=== PATIENT | female | born 1955 | race Caucasian/White ===

== ENCOUNTER 2024-07-30 09:07 | Inpatient (IN) | payer MEDICARE, OTHER, SELFPAY ==
[2024-07-09 13:49] LABS: Hemoglobin 12.4 g/dL (12.0-16.0); Mean Corp Hgb Conc. 34.4 g/dL (33.0-37.0); Mean Corpuscular Hgb 31.7 pg (27.0-31.0); Mean Corpuscular Volume 92.1 fL (81.0-99.0); Mean Platelet Volume 10.2 fL (7.4-10.4); Platelet Count 311 10^3/uL (130-400); Red Blood Cell Count 3.91 10^6/uL (4.20-5.40); Red Cell Dist. Width 13.2 % (11.5-14.5); White Blood Cell Count 6.7 10^3/uL (4.8-10.8)
[2024-07-09 14:08] LABS: Glycohemoglobin (HgbA1c) 5.5 % (4.0-5.6)
[2024-07-09 14:10] LABS: ALT (SGPT) 15 U/L (0-35); AST (SGOT) 26 U/L (14-36); Albumin 4.5 g/dl (3.5-5.0); Alkaline Phosphatase 98 U/L (38-126); Blood Urea Nitrogen 15 mg/dl (7-17); Calcium 9.5 mg/dl (8.4-10.2); Carbon Dioxide 26 mmol/L (22-30); Chloride 101 mmol/L (98-107); Glucose 95 mg/dl (70-99); Potassium 4.2 mmol/L (3.5-5.1); Sodium 137 mmol/L (135-145); Total Bilirubin 0.5 mg/dl (0.2-1.3); Total Protein 6.8 g/dl (6.3-8.2); eGFR > 60.00
[2024-07-09 14:14] VITALS: BMI 25.7
[2024-07-09 14:22] VITALS: BMI 25.7
--- NOTE | 2024-07-16 09:32 | VNURNOTE ---
Chart reviewed. Per Minna Perdomo's note, pt to be admitted morning of surgery. [facility] remains available pending DC dispo.
[2024-07-30] VITALS (17 sets, daily range): BP systolic 85–143; BP diastolic 47–110; PULSE 68; O2SAT 94
[2024-07-30] MEDS: TYLENOL 650 MG PO ×3 (09:27→19:50)
[2024-07-30] MEDS: CELEBREX 200 MG PO (09:27)
[2024-07-30] MEDS: NORMOSOL-R/PLASMALYTE-A 1000 IV ×2 (09:45→16:06)
--- NOTE | 2024-07-30 13:09 | W.DS.TRANS ---
DC Summary - Information Coder
-
Discharge Instructions:
Sleep Apnea Risk Low
Discharge Diagnosis/Procedures R TKA 07/30/24 *EARLY D/C*
Diet No restrictions
Activity With Walker
Additional Activity Adequate hydration, minimize Oxy and wear TEDs
stockings to prevent low blood pressure/
dizziness
Driving Restrictions No driving
Bathing Restrictions OK to Shower
Other Services PT
Instructions:
Stand-Alone Forms: Total Hip/Knee Replacement D/C
Changes to Home Medications: Yes
Discharge Medications:
DC Medications w/original date entered in [employer]
alprazolam 0.5 mg tablet 0.5 mg PO HS PRN sleep 07/06/24
ascorbic acid (vitamin C) 500 mg tablet (Vitamin C) 500 mg PO DAILY 07/06/24
azelastine 137 mcg (0.1 %) nasal spray 2 spray intranasal BID 07/06/24
cyclosporine 0.05 % eye drops 1 drp ophthalmic (eye) Q12H 07/06/24
diltiazem HCl 120 mg capsule,extended release 12 hr 120 mg PO DAILY 07/06/24
escitalopram oxalate 20 mg tablet 20 mg PO DAILY 07/06/24
estradiol 10 mcg vaginal tablet (Yuvafem) 10 mcg vaginal .TWICE A WEEK 07/06/24
flecainide 50 mg tablet 50 mg PO DAILY 07/06/24
fluticasone furoate 100 mcg/actuation blister powder for inhalation (Arnuity Ellipta) 1 inh inhalation DAILY PRN sob/wheeze 07/06/24
levothyroxine 75 mcg tablet 75 mcg PO DAILY 07/06/24
methylcellulose (laxative) 500 mg tablet (Citrucel) 1,000 mg PO BID 07/06/24
wbdvcnsr-jjoc-fevd 8 mg-folic 400 mcg-K 50 mcg-lutein 300 mcg tablet (Centrum Silver Women) 1 tab PO DAILY 07/06/24
polyethylene glycol 3350 17 gram oral powder packet (Miralax) 8.5 g PO DAILY 07/06/24
celecoxib 200 mg capsule 200 mg PO DAILY Anti-inflammatory #14 caps 07/09/24
dexamethasone 4 mg tablet 4 mg PO BID inflammation #6 tabs 07/09/24
gabapentin 300 mg capsule 300 mg PO HS sleep/pain #10 caps 07/09/24
mupirocin 2 % topical ointment 1 applic topical BID infection prevention #1 tube 07/09/24
ondansetron 4 mg disintegrating tablet 4 mg PO Q6H PRN n/v #20 tabs 07/09/24
oxycodone 5 mg tablet 5 mg PO Q6H PRN 1 tab moderate pain, 2 tabs severe pain #30 tabs 07/09/24
acetaminophen 325 mg tablet (Tylenol) 650 mg (2 x 325 mg) PO QID #1 tab 07/30/24
aspirin 325 mg tablet 325 mg PO DAILY blood clot prevention #1 tab 07/30/24
docusate sodium 100 mg capsule (Colace) 100 mg PO BID stool softner #1 cap 07/30/24
famotidine 20 mg tablet 20 mg PO HS GI prophylaxis #30 tabs 07/30/24
magnesium hydroxide 400 mg/5 mL oral suspension (Milk of Magnesia) 30 ml PO HS PRN constipation #1 mL 07/30/24
sennosides 8.6 mg tablet (Senokot) 17.2 mg (2 x 8.6 mg) PO BID laxative #2 tabs 07/30/24
Home Medication Changes
celecoxib 200 mg capsule 200 mg PO DAILY Anti-inflammatory #14 caps 07/09/24
dexamethasone 4 mg tablet 4 mg PO BID inflammation #6 tabs 07/09/24
gabapentin 300 mg capsule 300 mg PO HS sleep/pain #10 caps 07/09/24
mupirocin 2 % topical ointment 1 applic topical BID infection prevention #1 tube 07/09/24
ondansetron 4 mg disintegrating tablet 4 mg PO Q6H PRN n/v #20 tabs 07/09/24
oxycodone 5 mg tablet 5 mg PO Q6H PRN 1 tab moderate pain, 2 tabs severe pain #30 tabs 07/09/24
acetaminophen 325 mg tablet (Tylenol) 650 mg (2 x 325 mg) PO QID #1 tab 07/30/24
aspirin 325 mg tablet 325 mg PO DAILY blood clot prevention #1 tab 07/30/24
docusate sodium 100 mg capsule (Colace) 100 mg PO BID stool softner #1 cap 07/30/24
famotidine 20 mg tablet 20 mg PO HS GI prophylaxis #30 tabs 07/30/24
magnesium hydroxide 400 mg/5 mL oral suspension (Milk of Magnesia) 30 ml PO HS PRN constipation #1 mL 07/30/24
sennosides 8.6 mg tablet (Senokot) 17.2 mg (2 x 8.6 mg) PO BID laxative #2 tabs 07/30/24
Pending Results: No
--- NOTE | 2024-07-30 13:11 | W.PN.ORTHO ---
Today's Communication / Plan
-
D/c when stable
Assessment
.
Dressing:
Clean, dry and intact.
Assessment:
SVT
-tele-Flecainide, Diltiazem uninterrupted
-+ Midodrine w/ parameter to avoid orthostasis
Plan
.
Surgery / Date: R TKA *EARLY D/C*
DVT Prophylaxis: Aspirin
Activity:
Out of bed.
PT/OT
Discharge Plan: Home w/ Outpatient PT
Vital Signs and Labs
.
Vital Signs and Labs:
Lab Results
07/09/24 12:44
07/09/24 12:44
Temp Pulse Resp BP Pulse Ox
99.2 F 64 9 120/73 97
07/30/24 12:35 07/30/24 13:00 07/30/24 13:00 07/30/24 13:00 07/30/24 13:04
[2024-07-30] MEDS: ROXICODONE 5 MG PO ×2 (14:29→18:35)
--- NOTE | 2024-07-30 15:52 | PTCARENOTE ---
Patient admitted from PACU post right total knee arthroplasty.The patient reports her pain at a 5 out of 10.She is alert and oriented.Neurovascular assessment is within normal limits and ongoing.The right knee dressing is intact with a small amount
of drainage.Vital signs are stable.The patient is in her bed with the call jackson in reach.
[2024-07-30] MEDS: MIRALAX 8.5 GRAMS PO (16:05)
[2024-07-30] MEDS: LEXAPRO 20 MG PO (16:05)
[2024-07-30] MEDS: ProAmatine 5 MG PO (18:27)
[2024-07-30] MEDS: SYNTHROID 75 MCG PO (18:28)
[2024-07-30] MEDS: ANCEF 5 IV (18:28)
[2024-07-30] MEDS: ASPIRIN 325 MG PO (18:28)
[2024-07-30] MEDS: COLACE 100 MG PO (19:50)
[2024-07-30] MEDS: RESTASIS 0.05% OPHTHALMIC EMULSION 1 DROPS BOTH EYES (19:50)
[2024-07-30] MEDS: SENOKOT 17.2 MG PO (19:50)
[2024-07-30] MEDS: BACTROBAN 2% OINTMENT 1 APPLIC NASAL (19:50)
[2024-07-30] MEDS: XANAX 0.5 MG PO (21:17)
[2024-07-30] MEDS: PEPCID 20 MG PO (21:17)
[2024-07-30] MEDS: NEURONTIN 300 MG PO (21:18)
[2024-07-30] MEDS: DECADRON 4 MG IV (21:18)
[2024-07-30] MEDS: TORADOL 15 MG IV (21:18)
[2024-07-31] VITALS (7 sets, daily range): BP systolic 91–136; BP diastolic 55–75; PULSE 60–84; O2SAT 94–97
[2024-07-31] MEDS: TYLENOL 650 MG PO ×4 (00:55→11:45)
[2024-07-31] MEDS: ANCEF 5 IV (01:20)
[2024-07-31] MEDS: DECADRON 4 MG IV (05:00)
[2024-07-31] MEDS: TORADOL 15 MG IV (05:01)
--- NOTE | 2024-07-31 06:53 | W.PN.ORTHO ---
Today's Communication / Plan
-
d/c
Assessment
.
Distal Motor Intact: Yes
Dressing:
Clean, dry and intact.
Assessment:
SVT
-tele-Flecainide, Diltiazem uninterrupted
-- due to need for antiarrhythmics/CCB--Midodrine added w/ parameter to avoid orthostasis
-- BP low this am/POD#1-- dose Midodrine early and bolus 250ml NSS/1hour-check orthostatics prior to d/c
-- encouraged TEDs for home use and adequate hydration while minimizing opioids
Bowel regimen-discussed importance as outlined on d/c instructions
Plan
.
Surgery / Date: R TKA *EARLY D/C*
DVT Prophylaxis: Aspirin
Activity:
Out of bed.
PT/OT
Discharge Plan: Home w/ Outpatient PT
Subjective
.
.:
Patient resting comfortably.
Vital Signs and Labs
.
Vital Signs and Labs:
Lab Results
07/09/24 12:44
07/09/24 12:44
Temp Pulse Resp BP Pulse Ox
98.2 F 63 16 102/55 95
07/31/24 03:10 07/31/24 03:10 07/31/24 03:10 07/31/24 03:10 07/31/24 03:10
Non-invasive Hgb result: 12.4
Physical Exam
-
HEENT: No pallor, cyanosis, or jaundice. Throat clear.
NECK: Supple. No JVD.
RESPIRATORY: Lungs clear to auscultation.
CVS: S1, S2 normal. RRR.� No murmur, rub or gallop.
ABDOMEN: Soft, non-tender. No distension. BS+/normal.
EXTREMITIES: strength equal, no calf pain with palpation-minimal distal drainage
DIRECTOR OF OPERATIONS SUPPORT: AOx3. No focal deficits. fish salter grossly intact
[2024-07-31] MEDS: CARDIZEM CD 120 MG PO (07:41)
[2024-07-31] MEDS: ROXICODONE 5 MG PO (07:41)
[2024-07-31] MEDS: TAMBOCOR 50 MG PO (07:42)
[2024-07-31] MEDS: SENOKOT 17.2 MG PO (07:42)
[2024-07-31] MEDS: CELEBREX 200 MG PO (07:42)
[2024-07-31] MEDS: SYNTHROID 75 MCG PO (07:42)
[2024-07-31] MEDS: ASPIRIN 325 MG PO (07:42)
[2024-07-31] MEDS: COLACE 100 MG PO (07:42)
[2024-07-31] MEDS: LEXAPRO 20 MG PO (07:43)
[2024-07-31] MEDS: RESTASIS 0.05% OPHTHALMIC EMULSION 1 DROPS BOTH EYES (07:43)
[2024-07-31] MEDS: MIRALAX 8.5 GRAMS PO (07:43)
[2024-07-31] MEDS: BACTROBAN 2% OINTMENT 1 APPLIC NASAL (07:43)
[2024-07-31] MEDS: ProAmatine 5 MG PO ×2 (07:44→11:45)
[2024-07-31] MEDS: NSS 250 IV (07:47)
[2024-07-31] MEDS: FLOVENT 44 MCG INHALER 2 PUFF INH (08:22)
--- NOTE | 2024-07-31 09:14 | CM ---
CM met with patient in room. Patient given outpatient PT. Patient has appointment made for [facility] in [place] for 07/31.
PLAN: home with Out Patient PT.
== END 2024-07-31 13:37 | disposition home or self-care (01) | DRG 470 ==
LOC: 2 SOUTH 09:07
PROVIDERS: ADMITTING PHYSICIAN Specialist; FAMILY PHYSICIAN Family Medicine; REFERRING PHYSICIAN Internal Medicine Cardiovascular Disease
PROC: 0SRC069 Replacement of Right Knee Joint with Oxidized Zirconium on Polyethylene Synthetic Substitute, Cemented, Open Approach (ICD-10-PCS; 2024-07-30)
DX: M17.11 Unilateral primary osteoarthritis, right knee (principal); I47.10 Supraventricular tachycardia, unspecified; Z87.891 Personal history of nicotine dependence; J45.909 Unspecified asthma, uncomplicated; E03.9 Hypothyroidism, unspecified; G47.00 Insomnia, unspecified
CPT/HCPCS: 36415; 73560; 80053; 83036; 85027; 87070; 94640; 97110; 97116; 97162; 97166; 97530; C1713; C1776

== ENCOUNTER 2024-08-05 10:58 | Emergency (ER) | payer MEDICARE, OTHER, SELFPAY ==
[2024-08-05 11:10] VITALS: BP 111/60
[2024-08-05 12:00] VITALS: BP 129/61
[2024-08-05 12:27] LABS: % Basophils 0.1 % (0-2); % Eosinophils 0.6 % (0-6); % Immature Granulocytes 0.6 % (0-0.5); % Lymphocytes 15.2 % (20.5-51.1); % Monocytes 9.8 % (1.7-9.3); % Neutrophils 73.7 % (42.2-75.2); Absolute Eosinophils 0.1 10^3/uL (0-0.7); Absolute Immature Granulocytes 0.1 10^3/uL (0-0.05); Absolute Lymphocytes 2.1 10^3/uL (1.2-3.4); Absolute Monocytes 1.4 10^3/uL (0.1-0.6); Absolute Neutrophils 10.3 10^3/uL (1.4-6.5); Hematocrit 30.8 % (37.0-47.0); Hemoglobin 10.5 g/dL (12.0-16.0); Mean Corp Hgb Conc. 34.1 g/dL (33.0-37.0); Mean Corpuscular Hgb 30.9 pg (27.0-31.0); Mean Corpuscular Volume 90.6 fL (81.0-99.0); Mean Platelet Volume 9.3 fL (7.4-10.4); Nucleated Red Blood Cells % 0.1 %; Platelet Count 326 10^3/uL (130-400); Red Cell Dist. Width 13.2 % (11.5-14.5); White Blood Cell Count 14.1 10^3/uL (4.8-10.8)
[2024-08-05 12:41] LABS: Blood Urea Nitrogen 26 mg/dl (7-17); Calcium 8.6 mg/dl (8.4-10.2); Carbon Dioxide 31 mmol/L (22-30); Chloride 99 mmol/L (98-107); Glucose 100 mg/dl (70-99); Potassium 4.1 mmol/L (3.5-5.1); Sodium 131 mmol/L (135-145); eGFR > 60.00
[2024-08-05 13:00] VITALS: BP 128/68
--- NOTE | 2024-08-05 13:22 | ED.GENMED ---
History of Present Illness
General
Chief Complaint: Dizziness
Source: patient, significant other and ambulance crew
Exam Limitations: none
Time Seen by Provider: 08/05/24 11:06
History of Present Illness
History of Present Illness:
Patient is a 68-year-old female with past medical history of osteoarthritis, right total knee arthroplasty performed 6 days ago, SVT, asthma, hypothyroidism, insomnia, who presents to the emergency department from home via EMS accompanied by her
for evaluation following a syncopal episode. Patient reports that she does suffer with IBS-C. She reports that she had a large bowel movement while taking Dulcolax and senna 4 days ago. Patient reports that she therefore stopped the
Dulcolax and senna. She reports that as a result, she became constipated and restarted her bowel regimen yesterday. She reports that she got up this morning and needed to have a bowel movement. She reports that she sat on the toilet and was
feeling lightheaded so she tried to stand up. Patient reports that she remembers falling to the ground. She reports that she did her hit her right knee in the process. She reports that she is unsure whether she hit her head. She states that she
does think that she laid on the floor for a while before she came to. She reports that her right vision seemed blurry initially but has not resolved. Patient's got home and checked on the patient and found her on the ground and called 911.
Medics reported that the patient did appear pale on their arrival but improved and route to the emergency department. Patient reports that she has had syncopal episodes in the past, she believes that she was told that they were vasovagal in the
past. Patient denies headache, vision changes such as blurred vision or double vision currently, chest pain, palpitations, shortness of breath, abdominal pain, nausea, vomiting. Patient reports pain in her right knee ever since she had her
surgery. Patient denies increased pain in the knee, denies any pain or swelling into the calf. Patient denies any numbness, weakness, tingling of her extremities. Patient denies she is anticoagulated. Patient denies any recent fevers or chills.
Past History
Past History
ED Past Medical History: Arrthythmia (SVT), Asthma, Other (Osteoarthritis) and Other (IBS-C)
ED Past Surgical History: Orthopedic (Right TKA) and Tonsilectomy
Social History
Tobacco: Non-smoker
Alcohol: None
Drug: None
Personal:
Living: with family
Review of Systems
Review of Systems
Allergies reviewed?: Yes
All Other Systems: ROS reviewed and negative except as documented in HPI and ROS
Constitutional: Reports no symptoms
EENT: Reports no symptoms
Respiratory: Reports no symptoms; Denies hemoptysis or trouble breathing
Cardiac: Reports no symptoms; Denies chest pain
ABD/GI: Reports constipated; Denies abdominal pain
: Reports no symptoms
Musculoskeletal: Reports other (right knee pain)
Skin: Reports no symptoms
Neurological: Reports other (syncope)
Endocrine: Reports no symptoms
Hematologic/Lymphatic: Reports no symptoms
Psychiatric: Reports no symptoms
Phy Exam
General Physical Exam
General Presentation: well appearing and no apparent distress
General Skin: warm and dry
General Habitus: normal
General Mental: alert
General Hydration: appears well hydrated
ENT Exam
ENT Exam: EOMI, pharynx normal, neck supple and normocephalic
Eye Exam
Eye Exam: PERRL, cornea clear and conjunctiva normal
Cardiovascular Exam
Cardiovascular Exam: regular rate/rhythm, no edema, no murmur and normal peripheral pulses
Pulmonary Exam
Pulmonary Exam: lungs clear, no respiratory distress, no rales, no crackles, no rhonchi, no stridor, no wheezing and no cough
Gastrointestinal Exam
Gastrointestinal Exam: normal bowel sounds, non tender, soft, no organomegaly, no pulsatile mass and non distended
Neurological Exam
Neurological Exam: alert, oriented x3, CN II-XII intact, no motor deficits, no sensory deficits and speech normal
Musculoskeletal Exam
Musculoskeletal Exam: other (no c-spine ttp, no back ttp, dressing intact to right anterior knee, mild surrounding edema, no erythema, no calf ttp, neg Roque's sign, 2+ DP pulse, sensation intact distally)
Skin Exam
Skin Exam: normal color, warm/dry, no rash and no petechia
Psychiatric Exam
Psychiatric Exam: normal mood/affect
Course
Orders/Labs/Results
Orders:
Orders
08/05/24 11:04
EKG [Electrocardiogram (*1)] Urgent
Reason for Study: Syncope
EKG- Treatment ONCE
08/05/24 11:51
CT Head W/o Iv Contrast Urgent
Comment:
Reason For Exam: syncope, fall, concern for head injury
Knee, Right 1 or 2 Views [CR Knee - Right 1 Or 2 Views] Urgent
Comment:
Reason For Exam: right knee pain s/p fall, recent TKA
08/05/24 12:17
Basic Metabolic Panel Urgent
Complete Blood Count/With Diff Urgent
Abnormal Lab Results
08/05/24
12:17
WBC 14.1 H 10^3/uL
(4.8-10.8)
RBC 3.40 L 10^6/uL
(4.20-5.40)
Hgb 10.5 L g/dL
(12.0-16.0)
Hct 30.8 L %
(37.0-47.0)
Abs Immat Gran (auto) 0.1 H 10^3/uL
(0-0.05)
Absolute Neuts (auto) 10.3 H 10^3/uL
(1.4-6.5)
Absolute Monos (auto) 1.4 H 10^3/uL
(0.1-0.6)
Immature Gran % 0.6 H %
(0-0.5)
Lymphocytes % 15.2 L %
(20.5-51.1)
Monocytes % 9.8 H %
(1.7-9.3)
Sodium 131 L mmol/L
(135-145)
Carbon Dioxide 31 H mmol/L
(22-30)
BUN 26 H mg/dl
(7-17)
Glucose 100 H mg/dl
(70-99)
08/05/24 12:17
08/05/24 12:17
Vital Signs
Initial and Last Documented VS:
Initial Vital Signs
Pulse Resp Pulse Ox
55 16 94
08/05/24 11:05 08/05/24 11:05 08/05/24 11:05
Last Documented Vital Signs
Temp Pulse Resp BP Pulse Ox
97.8 F 56 15 128/68 93
08/05/24 11:10 08/05/24 14:00 08/05/24 14:00 08/05/24 13:00 08/05/24 14:00
*Critical Care Note
Total Time (30-74mins, 75-104mins- exclusive of procedures): Not Applicable
Update Note
Update Note:
Patient is a 68-year-old female who status post TKA 6 days ago who presents to the emergency department for evaluation following a syncopal episode that occurred while she was sitting on the toilet to try to have a bowel movement. Patient admits
that she has been constipated for the past 2 days and recently restarted her bowel regimen. Patient denies any recent fevers or chills. Patient denies any recent chest pain or shortness of breath. Patient denies any calf pain or swelling. On
arrival, patient's vital signs are stable, she is not tachycardic, she is not hypoxemic, she is afebrile. On exam, patient is well-appearing, she is in no acute distress, she has a normal cardiopulmonary exam, she has no evidence of traumatic
injury on her physical examination, she is neurovascularly intact. Will obtain EKG, check labs along with a CT of the head given the patient's possible head strike, and radiographs of the right knee. Patient states that she has been drinking
plenty of fluids and does not require any medication for pain at this time.
Patient's labs are notable for a very mild leukocytosis of 14.1, BUN is slightly elevated at 26. The remainder of the patient's labs are nonactionable. CT of the head demonstrates no acute intracranial abnormality. Radiographs of the right knee
demonstrate no osseous abnormality, no evidence of hardware complication. Patient able to have a large bowel movement while she was in the emergency department. She was able to ambulate to the restroom with assistance with a steady gait. I
suspect that the patient's syncope was vasovagal in nature and that she is safe for discharge home. I have low suspicion for PE given patient's reassuring vital signs, no tachycardia, no hypoxemia, and lack of chest pain or shortness of breath.
She was encouraged to drink plenty of fluids. She is supposed to follow-up with her orthopedic surgeons office this week for a wound check which she was encouraged to do. Patient and her were educated on strict return precautions, they
expressed understanding of the plan and agreed.
ED Attending Note
-
Portions of this chart may have been created with voice recognition software.� Occasional wrong word or��sound alike� substitutions may have occurred due to the inherent limitations of voice recognition software.
Discharge Plan
Departure
Patient Disposition: Home (Routine Discharge)
Date of Disposition: 08/05/24
Time of Disposition: 14:09
Patient with high blood pressure during this ER visit?: No
Condition: Good
Covid-19: Not Applicable
Discharge Problem:
Syncope, Knee pain, right
Instructions: Syncope (fainting), Vasovagal Response (DC)
Prescriptions:
No Action
polyethylene glycol 3350 [Miralax] 17 gram Powder In Packet
8.5 g PO DAILY
levothyroxine 75 mcg Tablet
75 mcg PO DAILY
diltiazem HCl 120 mg Capsule,Extended Release 12 Hr
120 mg PO DAILY
alprazolam 0.5 mg Tablet
0.5 mg PO HS PRN (Reason: sleep)
ascorbic acid (vitamin C) [Vitamin C] 500 mg Tablet
500 mg PO DAILY
Citrucel 500 mg Tablet
1,000 mg PO BID
flecainide 50 mg Tablet
50 mg PO DAILY
azelastine 137 mcg (0.1 %) [place],Non-Aerosol
2 spray INTRANASAL BID
escitalopram oxalate 20 mg Tablet
20 mg PO DAILY
estradiol [Yuvafem] 10 mcg Tablet
10 mcg VAGINAL .TWICE A WEEK
Centrum Silver Women 8 mg iron-400 mcg-50 mcg Tablet
1 tab PO DAILY
Arnuity Ellipta 100 mcg/actuation Blister With Device
1 inh INHALATION DAILY PRN (Reason: sob/wheeze)
cyclosporine 0.05 % Drops
1 drp OPHTHALMIC (EYE) Q12H
mupirocin 2 % ointment
1 applic topical BID Qty: 1 0RF
Patient Comments:
last dose toay 07/30 0700
celecoxib 200 mg capsule
200 mg PO DAILY Qty: 14 0RF
Rx Instructions:
*POST-OP USE ONLY
*take with food
dexamethasone 4 mg tablet
4 mg PO BID Qty: 6 0RF
Rx Instructions:
take with food
post-op use only
gabapentin 300 mg capsule
300 mg PO HS Qty: 10 0RF
Rx Instructions:
*POST-OP USE ONLY
ondansetron 4 mg tablet,disintegrating
4 mg PO Q6H PRN (Reason: n/v) Qty: 20 0RF
Rx Instructions:
take 1/2h b/f pain med if recurrent nausea
allow to dissolve in mouth w/o water
oxycodone 5 mg tablet
5 mg PO Q6H PRN (Reason: 1 tab moderate pain, 2 tabs severe pain) Qty: 30 0RF
Rx Instructions:
Ongoing therapy
POST-OP USE ONLY
aspirin 325 mg tablet
325 mg PO DAILY Qty: 1 0RF
Rx Instructions:
Take with food
docusate sodium [Colace] 100 mg capsule
100 mg PO BID Qty: 1 0RF
magnesium hydroxide [Milk of Magnesia] 400 mg/5 mL suspension
30 ml PO HS PRN (Reason: constipation) Qty: 1 0RF
Rx Instructions:
continue taking colace and senokot as advised--if no bowel movement 1 day after surgery -add milk of mag
sennosides [Senokot] 8.6 mg tablet
17.2 mg PO BID Qty: 2 0RF
acetaminophen [Tylenol] 325 mg tablet
650 mg PO QID Qty: 1 0RF
Rx Instructions:
SCHEDULED DOSING
famotidine 20 mg tablet
20 mg PO HS Qty: 30 0RF
Rx Instructions:
post-op
Referrals:
Pablo Hdz DO [Family Provider] - Follow up in 2-3 days
Activity Restrictions/Additional Instructions:
You were seen in the emergency department for evaluation of an episode of passing out. While you were in the emergency department you had an EKG and blood work. No dangerous abnormalities were found. You also had a CT scan of your head which
showed no abnormalities as well as an x-ray of your right knee which shows no complication of your recent surgery. We suspect that the episode was vasovagal in nature. We recommend that you get plenty of rest and make sure that you are drinking
plenty of fluids. Please continue taking your prescribed medications. Please follow-up with your orthopedic surgeon for postoperative evaluation of your knee. Please follow-up with your primary care provider as well. Please return to the
emergency department if you develop dizziness, lightheadedness, if you pass out or feel you are going to pass out, if you have chest pain, palpitations, shortness of breath, pain or swelling of your right calf or lower leg, or for any other
worsening or concerning symptoms.
Interventions
Interventions:
*Risk Screen - Suicide Last Done: 08/05/24 11:10
*General Assessment Last Done: 08/05/24 11:10
*Neglect/Abuse Screening Last Done: 08/05/24 11:10
*ED- Fall Risk Assessment Last Done: 08/05/24 11:10
*ED COVID-19 Vaccine History Last Done: 08/05/24 11:10
*Nursing Disposition Last Done: 08/05/24 14:44
ED- Neurological Assessment Last Done: 08/05/24 12:30
Discharge Date and Time
Discharge Date/Time: 08/05/24 14:45
Print Language: BULGARIAN
== END 2024-08-05 14:45 | disposition home or self-care (01) ==
LOC: EMR 10:58
PROVIDERS: Physician Assistant Medical; EMERGENCY PHYSICIAN Emergency Medicine; FAMILY PHYSICIAN Family Medicine; OTHER PHYSICIAN Specialist
DX: R55 Syncope and collapse (principal); M25.561 Pain in right knee; Z96.651 Presence of right artificial knee joint; E03.9 Hypothyroidism, unspecified; J45.909 Unspecified asthma, uncomplicated
CPT/HCPCS: 99284; 70450; 73560; 80048; 85025; 93005

== ENCOUNTER 2024-08-20 12:59 | Emergency (ER) | payer MEDICARE, OTHER, SELFPAY ==
[2024-08-20 13:18] VITALS: BP 137/69; BP 167/69; BMI 24.2
[2024-08-20 13:23] LABS: % Basophils 0.4 % (0-2); % Eosinophils 0.4 % (0-6); % Immature Granulocytes 0.2 % (0-0.5); % Lymphocytes 4.6 % (20.5-51.1); % Monocytes 7.7 % (1.7-9.3); % Neutrophils 86.7 % (42.2-75.2); Absolute Lymphocytes 0.2 10^3/uL (1.2-3.4); Absolute Monocytes 0.4 10^3/uL (0.1-0.6); Hematocrit 29.7 % (37.0-47.0); Hemoglobin 10.4 g/dL (12.0-16.0); Mean Corpuscular Hgb 32.5 pg (27.0-31.0); Mean Corpuscular Volume 92.8 fL (81.0-99.0); Mean Platelet Volume 8.7 fL (7.4-10.4); Nucleated Red Blood Cells % 0 %; Platelet Count 235 10^3/uL (130-400); Red Cell Dist. Width 14.1 % (11.5-14.5); White Blood Cell Count 4.6 10^3/uL (4.8-10.8)
[2024-08-20 13:42] LABS: ALT (SGPT) 23 U/L (0-35); AST (SGOT) 29 U/L (14-36); Alkaline Phosphatase 109 U/L (38-126); Blood Urea Nitrogen 18 mg/dl (7-17); Calcium 8.6 mg/dl (8.4-10.2); Carbon Dioxide 21 mmol/L (22-30); Chloride 102 mmol/L (98-107); Estimated Creatinine Clearance 70 ml/min; Glucose 90 mg/dl (70-99); Potassium 4.5 mmol/L (3.5-5.1); Sodium 130 mmol/L (135-145); Total Bilirubin 0.9 mg/dl (0.2-1.3); eGFR > 60.00
--- NOTE | 2024-08-20 14:00 | ED.GENMED ---
History of Present Illness
General
Chief Complaint: Fainting/Passed Out
Source: patient, records and spouse
Exam Limitations: none
Time Seen by Provider: 08/20/24 13:48
Nursing documentation reviewed up to this point in time: agreed with
History of Present Illness
History of Present Illness:
68-year-old female with past medical history of IBS-C, SVT, hypothyroidism who is 3 weeks status post right total knee replacement with Dr. Corbin presents to the emergency room now for the second time after syncopal event. Patient was seen 2
weeks ago after syncope while having a bowel movement in the setting of constipation. Workup was unremarkable and she was ultimately discharged home. She has been doing physical therapy for her knee and today did an hour-long physical therapy
session. She says that while they were doing the last exercise she began to feel some mild shortness of breath and then felt very lightheaded and passed out/nearly passed out. EMS was called by physical therapy staff�she said she was lowered to
the floor did not have any fall or trauma. Per EMS report on their arrival patient was hypotensive with a blood pressure of 79/49 and so an IV was placed and she was given approximately 800 cc of IV fluid with improvement in her blood pressure.
Patient says that she feels much better now she says she is asymptomatic here in the emergency room. She denies any chest pain, shortness of breath, lightheadedness or dizziness. Denies any headache. Denies any abdominal or flank pain. She
denies any other complaints. She admits that she only had about one glass of water prior to her PT session today. Regarding her right knee�recently saw Dr. Corbin to have anum removed, has been doing generally well with PT and is ambulatory
with a cane. She says pain and swelling has generally improved.
Past History
Past History
ED Past Medical History: Arrthythmia (SVT), Asthma, Other (Osteoarthritis) and Other (IBS-C)
ED Past Surgical History: Orthopedic (Right TKA) and Tonsilectomy
Social History
Tobacco: Non-smoker
Alcohol: None
Drug: None
Personal:
Living: with family
Review of Systems
Review of Systems
All Other Systems: ROS reviewed and negative except as documented in HPI and ROS
Constitutional: Denies fever
Respiratory: Reports trouble breathing (Resolved)
Cardiac: Reports syncope; Denies chest pain or palpitations
ABD/GI: Denies abdominal pain, nausea or vomiting
: Denies flank pain
Musculoskeletal: Denies neck pain or back pain
Neurological: Denies headache
Phy Exam
Physical Exam
Physical Exam:
General: Awake, alert, oriented x3; no acute distress
Head: Normocephalic, atraumatic
Eyes: Conjunctiva normal, pupils equal round and reactive to light bilaterally
Throat: Airway intact, handling secretions
Neck: Trachea midline, supple without meningismus
Lungs: Clear to auscultation bilaterally, no wheezing, rales, rhonchi
Heart: Regular rate and rhythm, no murmurs, gallops, or rubs appreciated
Abd: Soft, non distended, nontender with no palpable mass
Neuro: No gross deficits
Skin: Well-healing incision right anterior knee with Steri-Strips in place and no signs of acute infection
Extremities: Patient has some residual old appearing bruising in the right knee and calf status post her knee replacement with well-healing incision; she has some mild tenderness posterior knee and calf
Scores
Heart Failure Risk
Heart Failure Risk Score: Not Applicable
Heart Score for Chest Pain Patients
STEMI patient?: Not applicable
Withdrawal Assessment of Alcohol
Withdrawal Assessment Completed?: Not applicable
Course
Orders/Labs/Results
Orders:
Orders
08/20/24 13:01
EKG [Electrocardiogram (*1)] Urgent
Reason for Study: Vertigo / Dizzy
EKG- Treatment ONCE
08/20/24 13:15
Complete Blood Count/With Diff Urgent
Comprehensive Metabolic Panel Urgent
08/20/24 13:59
CT Chest PE Study Urgent
Comment:
Reason For Exam: syncope x2 s/p knee surgery
08/20/24 14:05
US Periph Venous LOWER Ext RT Urgent
Comment:
Reason For Exam: RLE swelling and pain s/p surgery
08/20/24 14:08
Troponin I Urgent
08/20/24 17:20
Apixaban [Eliquis] 5 mg PO ONCE ONE
Abnormal Lab Results
08/20/24
13:15
WBC 4.6 L 10^3/uL
(4.8-10.8)
RBC 3.20 L 10^6/uL
(4.20-5.40)
Hgb 10.4 L g/dL
(12.0-16.0)
Hct 29.7 L %
(37.0-47.0)
MCH 32.5 H pg
(27.0-31.0)
Absolute Lymphs (auto) 0.2 L 10^3/uL
(1.2-3.4)
Neutrophils % 86.7 H %
(42.2-75.2)
Lymphocytes % 4.6 L %
(20.5-51.1)
Sodium 130 L mmol/L
(135-145)
Carbon Dioxide 21 L mmol/L
(22-30)
BUN 18 H mg/dl
(7-17)
Total Protein 6.0 L g/dl
(6.3-8.2)
08/20/24 13:15
08/20/24 13:15
Vital Signs
Initial and Last Documented VS:
Initial Vital Signs
Temp Pulse Resp BP Pulse Ox
36.7 C 67 19 137/69 97
08/20/24 13:18 08/20/24 13:18 08/20/24 13:18 08/20/24 13:18 08/20/24 13:18
Last Documented Vital Signs
Temp Pulse Resp BP Pulse Ox
36.7 C 71 21 128/69 96
08/20/24 13:18 08/20/24 14:15 08/20/24 14:15 08/20/24 14:08 08/20/24 14:15
MDM/Problems Addressed
Differential Diagnosis Includes:
Dehydration, vasovagal syncope, dysrhythmia/SVT, pulmonary embolism
MDM/Problems Addressed:
68-year-old female presents for the second time in the past month for syncope; today had syncopal event after doing about an hour of physical therapy status post knee surgery. She feels well here in the emergency room but prior to syncopal event
she had some mild dyspnea. Vitals and exam as above. EKG shows sinus rhythm with no ectopy, no QT prolongation, no Brugada, no delta wave. Will place an IV check labs including CBC and CMP. Will check troponin. I think given her multiple
syncopal events in the setting of recent knee surgery she should be ruled out for pulmonary embolism�will check CT chest and also check ultrasound of the leg to rule out DVT. Monitor on telemetry and reassess after the above.
Labs reviewed: CBC shows stable anemia compared to prior. CMP shows mild hyponatremia unlikely of acute clinical significance. Her troponin is undetectable. DVT study shows nonocclusive thrombus in the right calf vein. CT chest pending. Vitals
have been stable.
CT chest shows no PE. Patient has been stable throughout ED observation. Given repeat episode I did offer her admission for monitoring overnight and cardiology consultation. She says she wants to go home she feels fine. She has a chain builder
through [facility] and plans to call to schedule expeditious follow-up. Using shared decision making we will discharge patient. I did explain that she has a small nonocclusive thrombus in the right calf. I discussed this with hematology who
recommended switching from aspirin to Eliquis. Patient is comfortable with this plan; all questions answered.
*Radiology
Radiology exam reviewed: radiology read reviewed
*Pulse Oximetry
Patient hypoxic: no
*EKG
Interpreted by ED Provider?: Yes
Comparison EKG: no changes
Heart Rate: 67
Rate: normal
Rhythm: sinus
[place]: normal axis
Interval: normal interval
QRS Pattern: normal QRS
Ischemia: no ischemia (No acute ischemia-lateral infarct age undetermined unchanged from prior)
*Critical Care Note
Total Time (30-74mins, 75-104mins- exclusive of procedures): Not Applicable
Data Reviewed
Source: patient and records
Patient Management
Escalation/DeEscalation of care consider admission/obs:
Recommended admission patient prefers discharge with close cardiology follow-up�shared decision making she was discharged
ED Attending Note
-
Portions of this chart may have been created with voice recognition software.� Occasional wrong word or��sound alike� substitutions may have occurred due to the inherent limitations of voice recognition software.
Discharge Plan
Departure
Patient Disposition: Home (Routine Discharge)
Date of Disposition: 08/20/24
Time of Disposition: 17:17
Patient with high blood pressure during this ER visit?: No
Discharge Problem:
Syncope, Acute deep vein thrombosis of calf
Instructions: Deep vein thrombosis (blood clot in the leg), Syncope (Fainting) (DC)
Prescriptions:
New
Eliquis 5 mg tablet
5 mg PO BID Qty: 60 0RF
No Action
polyethylene glycol 3350 [Miralax] 17 gram Powder In Packet
8.5 g PO DAILY
levothyroxine 75 mcg Tablet
75 mcg PO DAILY
diltiazem HCl 120 mg Capsule,Extended Release 12 Hr
120 mg PO DAILY
alprazolam 0.5 mg Tablet
0.5 mg PO HS PRN (Reason: sleep)
ascorbic acid (vitamin C) [Vitamin C] 500 mg Tablet
500 mg PO DAILY
Citrucel 500 mg Tablet
1,000 mg PO BID
flecainide 50 mg Tablet
50 mg PO DAILY
azelastine 137 mcg (0.1 %) [place],Non-Aerosol
2 spray INTRANASAL BID
escitalopram oxalate 20 mg Tablet
20 mg PO DAILY
estradiol [Yuvafem] 10 mcg Tablet
10 mcg VAGINAL .TWICE A WEEK
Centrum Silver Women 8 mg iron-400 mcg-50 mcg Tablet
1 tab PO DAILY
Arnuity Ellipta 100 mcg/actuation Blister With Device
1 inh INHALATION DAILY PRN (Reason: sob/wheeze)
cyclosporine 0.05 % Drops
1 drp OPHTHALMIC (EYE) Q12H
mupirocin 2 % ointment
1 applic topical BID Qty: 1 0RF
Patient Comments:
last dose toay 07/30 0700
celecoxib 200 mg capsule
200 mg PO DAILY Qty: 14 0RF
Rx Instructions:
*POST-OP USE ONLY
*take with food
dexamethasone 4 mg tablet
4 mg PO BID Qty: 6 0RF
Rx Instructions:
take with food
post-op use only
gabapentin 300 mg capsule
300 mg PO HS Qty: 10 0RF
Rx Instructions:
*POST-OP USE ONLY
ondansetron 4 mg tablet,disintegrating
4 mg PO Q6H PRN (Reason: n/v) Qty: 20 0RF
Rx Instructions:
take 1/2h b/f pain med if recurrent nausea
allow to dissolve in mouth w/o water
oxycodone 5 mg tablet
5 mg PO Q6H PRN (Reason: 1 tab moderate pain, 2 tabs severe pain) Qty: 30 0RF
Rx Instructions:
Ongoing therapy
POST-OP USE ONLY
aspirin 325 mg tablet
325 mg PO DAILY Qty: 1 0RF
Rx Instructions:
Take with food
docusate sodium [Colace] 100 mg capsule
100 mg PO BID Qty: 1 0RF
magnesium hydroxide [Milk of Magnesia] 400 mg/5 mL suspension
30 ml PO HS PRN (Reason: constipation) Qty: 1 0RF
Rx Instructions:
continue taking colace and senokot as advised--if no bowel movement 1 day after surgery -add milk of mag
sennosides [Senokot] 8.6 mg tablet
17.2 mg PO BID Qty: 2 0RF
acetaminophen [Tylenol] 325 mg tablet
650 mg PO QID Qty: 1 0RF
Rx Instructions:
SCHEDULED DOSING
famotidine 20 mg tablet
20 mg PO HS Qty: 30 0RF
Rx Instructions:
post-op
Referrals:
Pablo Hdz DO [Family Provider, Family Practice] - Follow up in 5-7 days
Activity Restrictions/Additional Instructions:
You should follow-up with your chain builder as well as your primary care physician as soon as possible after your ER visit. Please return to the ER with any continued or new concerning symptoms.
Thank you for visiting the Emergency Department at [facility].
1. Please schedule a follow up appointment as directed. Call first thing tomorrow morning to make an appointment.
2. If indicated, please take your medications as instructed and indicated on discharge paperwork.
3. If any of your symptoms do not improve, or persist, or become more severe within 6-12 hours, please return to the emergency department for further care.
4. Please return to the emergency department if you develop a headache, neck pain/stiffness, fever greater than 100.4F, chest pain, shortness of breath, persistent nausea, vomiting, slurred speech, difficulty walking, numbness/tingling, weakness,
signs of infection or any other symptoms that are worrisome to you.
Please call [phone] if you have any questions.
Interventions
Interventions:
*Risk Screen - Suicide Last Done: 08/20/24 13:18
*General Assessment Last Done: 08/20/24 13:18
*Neglect/Abuse Screening Last Done: 08/20/24 13:18
*ED- Fall Risk Assessment Last Done: 08/20/24 13:18
*ED COVID-19 Vaccine History Last Done: 08/20/24 13:18
ED- Cardiac Assessment Last Done: 08/20/24 13:18
ED- Neurological Assessment Last Done: 08/20/24 13:18
Discharge Date and Time
Print Language: BELIZEAN
[2024-08-20 14:08] VITALS: BP 128/69
[2024-08-20 14:38] LABS: Troponin I < 0.012 ng/ml
[2024-08-20] MEDS: ELIQUIS 5 MG PO (17:51)
== END 2024-08-20 18:00 | disposition home or self-care (01) ==
LOC: EMR 12:59
PROVIDERS: Emergency Medicine; EMERGENCY PHYSICIAN Emergency Medicine; FAMILY PHYSICIAN Family Medicine
DX: I82.441 Acute embolism and thrombosis of right tibial vein (principal); R55 Syncope and collapse; K58.1 Irritable bowel syndrome with constipation; I47.10 Supraventricular tachycardia, unspecified; E03.9 Hypothyroidism, unspecified; J45.909 Unspecified asthma, uncomplicated; M19.90 Unspecified osteoarthritis, unspecified site; Z79.01 Long term (current) use of anticoagulants; Z96.651 Presence of right artificial knee joint; Z98.890 Other specified postprocedural states
CPT/HCPCS: 71275; 80053; 84484; 85025; 93005; 93971; 99284; Q9967